=== PATIENT | female | born 1955 ===

== ENCOUNTER 2016-09-08 11:46 | Day surgery (SDC) | payer OTHER ==
[2016-08-25 08:09] VITALS: BMI 25.4
[2016-08-25 09:26] VITALS: RESP 18
[2016-09-08] MEDS ORDERED: Lidocaine 1% Inj (20ml) IJ ONE (12:55)
[2016-09-08] MEDS ORDERED: ceFAZolin 1 GM in Sodium Chloride 0.9% 100 ML IVPB ONE (12:55)
--- NOTE | 2016-09-08 12:55 | CP.SDSHP ---
Same Day Surgery H & P - History Proposed Procedure: Right foot cyst removal Pre-Op Diagnosis: Roght foot dorsal soft tissue mass - Previous Medical/Surgical History Cardiac: Other Pulmonary: Other Endocrine/Metabolic: Other Neuro: Other Misc: Other Pain: 4.Moderate Pain Previous Surgical History: No history of surgery - Allergies Allergies: Allergies No Known Allergies Allergy (Unverified 08/25/16 08:09) - Current Medications Current Medications: Denies - Physical Exam Vital Signs: Vital Signs 09/08/16 09/08/16 12:03 12:06 Temperature 98.5 F Pulse Rate 65 62 Respiratory 18 Rate Blood Pressure 134/62 O2 Sat by Pulse 97 Oximetry Mental Status: Alert & Oriented x3 Neuro: WNL Heart: WNL Lungs: WNL GI: WNL - {Optional Preform as Required} Breast: Other Abdomen: Other Rectal: Other Integument: Other ELECTRIC UTILITY LINEWORKER: Other : Other Ortho: Other ENT: Other - Impression Impression: Pt was seen and examined in SDS. Pt NPO status was confirmed. All Pre-op testing and clearance was in the chart. Pt has exhausted all conservative treatment at this time and is opting for surgical intervention. Pt was explained procedure and post-operative course. All pt's questions were answered to satisfaction. No guarantees were made. Pt understands all risks, benefits and complications of procedure. Pt will follow-up with Dr. Yi Pt. Evaluated Today:Candidate for Anesthesia & Procedure: Yes - Date & Time Date: 09/08/16 Short Stay Discharge - Short Stay Discharge Admitting Diagnosis/Reason for Visit: M67.471 Disposition: HOME/ ROUTINE Referrals: FAMILY PROVIDER,NO [Primary Care Provider] - Follow-up: Follow up with Dr. Yi within 1 week at his office Instructions: RICE Therapy (GEN) Additional Instructions (Diet, Activity): Weight bearing as tolerated in surgical shoes. Progress Note/Discharge Note with Instructions: Patient in good/stable condition for discharge home. Pt to resume medications per medical reconciliation. Resume regular diet. Please keep dressing clean, dry, & intact to surgical site, use plastic bag over bandage for showering, wear post op shoe at all times when ambulating, call clinic if you see signs of infection (redness, swelling, malodor), please make an appointment to see Dr. Yi in office within 1 week for post-op check.
--- NOTE | 2016-09-08 12:55 | CP.PCM.PN ---
Subjective - Date & Time of Evaluation Date of Evaluation: 09/08/16 Time of Evaluation: 12:00 - Subjective Subjective: 61 year old female patient with no significant PMHx was seen at bedside this morning for scheduled surgery of Right foot cyst removal by Dr. Yi. Patient states that she developed a cyst on top of her right foot over couple of months. The cyst at first did not have too much pain, but now it has grown too big and generated pain. Patient wishes for surgical intervention to get rid of the soft tissue mass. Patient also states that the skin covering the cyst becomes irritated when she walks in shoes. Patient was explained of the surgical planning in detail. Patient understands and agrees with the surgical plan. Patient confirms NPO status. Patient denies of any N/V/F/C or SOB today Objective - Vital Signs/Intake and Output Vital Signs (last 24 hours): Temp Pulse Resp BP Pulse Ox 98.5 F 62 18 134/62 97 09/08/16 12:06 09/08/16 12:06 09/08/16 12:06 09/08/16 12:06 09/08/16 12:06 - Constitutional Appears: Well, Non-toxic, No Acute Distress - Extremities Exam Additional comments: Bilateral lower extremities exam DERM: No open wound is noted. No erythema is noted to bilateral feet. No sign of acute infection is noted. 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 NEURO: Protective sensation intact ORTHO including biomechanics exam: S: 61 year old female patient presenting with painful, over grown soft tissue mass to dorsal aspect of right Mid-foot area. Patient states she cannot perform normal daily activity due to pain and irritation of the cyst. Patient wishes for surgical intervention. O: Pain on palpation to right mid foot over the cyst is noted with pain exacerbated upon weightbearing to Right foot. Normal ROM to Right ankle is noted with more than 15' in DF, accompanied by no pain Mild Arch collapse is noted bilaterally upon weightbearing. RCSP 2 degrees inverted to Left, 2 degrees to Right. No structural or functional Limb length discrepancy is noted upon examination. STJ ROM is adaquate with MPJ inverted to the rearfoot. Anterior cavus foot type is not present to B/L feet. Hypermobile 1st ray is absent bilaterally Gait evaluation reveals normal propulsive gait, but with weak plantarflexion before swing phase of gait cycle. Slight pronation is noted throughout midstance and propulsion, with the knees flexed throughout the gait cycles. Increased angle of gait from the normal value of 10' as well as increased base of gait. Enhanced arch collapse on forefoot loading is noted; Left more than right. Slight antalgic gait is noted with shortened stance phase is noted to Right lower extremity. A: Painful soft tissue mass is noted to dorsum of right foot measuring 4.5cm x 3cm x 2cm in height. Mild pes planus without pain is also present to Right foot with mild arch collapse upon weightbearing P: Possible conservative measures were discussed with the patient including orthotics for pes planus (asymptomatic) Patient is present today for Surgical intervention for cyst removal from right foot by Dr. Yi - Neurological Exam Neurological Exam: Alert, Awake, Oriented x3 - Psychiatric Exam Psychiatric exam: Normal Affect, Normal Mood - Skin Skin Exam: Normal Color, Warm Assessment and Plan - Assessment and Plan (Free Text) Assessment: 61 year old female patient presents with painful cyst to dorsum of right mid- foot Plan: Pt was seen and examined in SDS Pt NPO status was confirmed All Pre-op testing and clearance was in the chart Pt has exhausted all conservative treatment at this time and is opting for surgical intervention Pt was explained procedure and post-operative course All pt's questions were answered to satisfaction No guarantees were made Pt understands all risks, benefits and complications of procedure Pt will follow-up with Dr. Yi
[2016-09-08] MEDS ORDERED: Lactated Ringer's 1,000 ML IV SCH (13:00)
[2016-09-08] MEDS ORDERED: Bupivacaine 0.5% Inj(30mL) ONE (13:40)
[2016-09-08] MEDS ORDERED: Lidocaine 1% Inj (20ml) ONE (13:40)
[2016-09-08] MEDS ORDERED: Ketamine 50 mg/ml Inj (10 ml) ONE (14:13)
[2016-09-08] MEDS ORDERED: Midazolam 2 MG/2 ML VIAL ONE (14:13)
[2016-09-08] MEDS ORDERED: Propofol 10 mg/ml Inj (20 ML) ONE ×3 (14:13→14:29)
[2016-09-08] MEDS ORDERED: Lactated Ringer's 1,000 ML IV ONE (14:42)
[2016-09-08] MEDS ORDERED: Dexamethasone 4 mg/1 ml ONE (14:47)
[2016-09-08] MEDS ORDERED: Dexamethasone 4 mg/1 ml IM ONE (15:00)
[2016-09-08] MEDS ORDERED: HYDROmorphone 0.5 mg/0.5 ml ISec IVP PRN (15:23)
[2016-09-08] MEDS ORDERED: Oxycodone/Acetaminophen 5/325 mg Tab PO PRN ×2 (15:28)
--- NOTE | 2016-09-08 15:34 | PCM.SURG1 ---
Surgeon's Initial Post Op Note - Surgeon's Notes Surgeon: Hugh Yi DPM Bee Producer: Kaia Antunez, PGY1 Type of Anesthesia: MAC Anesthesia Administered By: Dr. Solano Pre-Operative Diagnosis: Roght foot dorsal soft tissue mass Operative Findings: See dictation. Anesthesia MAC w/ 8 ccs of 1% lidocaine plain. M: 3-0 vicryl, 4-0 vicryl, 4-0 monucryl, 4-0 nylon,. I: 1 cc of 0.4% dexamethasone phosphate & 6 cc of 0.5% marcaine plain Post-Operative Diagnosis: Rigth foot ganglion cyst Operation Performed: Right foot cyst removal Specimen/Specimens Removed: Soft tissue gangion cyst Estimated Blood Loss: EBL {In ML}: 0 Blood Products Given: N/A Drains Used: No Drains Post-Op Condition: Good Date of Surgery/Procedure: 09/08/16 Time of Surgery/Procedure: 14:30
[2016-09-08 15:43] VITALS: O2SAT 100
[2016-09-08 16:31] VITALS: BP 130/68; PULSE 55; TEMP 97.2
--- NOTE | 2016-09-12 08:59 | OP ---
PROCEDURE DATE: 09/08/2016 PRIMARY SURGEON: Hugh Yi DPM. CANCER PROGRAM DIRECTOR: Kaia nAtunez DPM, PGY-1. ANESTHESIA: MAC. ANESTHESIOLOGIST: Ed Solano MD. PREOPERATIVE DIAGNOSIS: Right foot dorsal cyst. POSTOPERATIVE DIAGNOSIS: Right foot ganglion cyst. NAME OF PROCEDURE: Right foot cystectomy/ganglion cyst excision. INDICATIONS: The patient is a 61-year-old female with the above diagnosis. The patient has exhauste d conservative treatment options at this time, and now requests surgical intervention. The patient s igned the consent after careful explanation of risks, benefits, complications, and alternatives for t he surgical procedure. No guarantees were neither given nor implied. The patient's n.p.o. status wa s confirmed prior to taking the patient to the OR. PREPARATION: The patient was brought to the operating room and placed on the operating room table in a supine position. A well-padded pneumatic tourniquet was placed on the patient's right ankle in th e supramalleolar position. After induction of IV sedation, the patient received a total of 8 mL of l idocaine 1% plain in a local block-type fashion to the right foot. Once local anesthesia and IV cliff tion were achieved and noted to be in full effect, the right foot was then prepped and draped in the usual sterile manner. Esmarch was utilized to exsanguinate the patient's right foot, and pneumatic t ourniquet was then inflated to 250 mmHg, and the procedure began. PROCEDURE: The attending was present during the entire case. Attention was then directed to the dorsal aspect of the right mid-foot where a curvilinear incision w as made measuring approximately 5 cm in length over the palpable soft tissue mass using a #15 blade. The skin incision was deepened down to the superficial fascia layers with attention directed to tj id neurovascular structures. Using blunt dissection, the dissection was continued down to the deep s ubcutaneous tissue layer. All bleeders were cauterized and ligated as necessary as incision was deep ened. Upon dissection, a cystic soft tissue mass was noted. Careful blunt dissection using a mixtur e of Iris scissors and Metzenbaum scissors was used. The soft tissue mass was excised and passed fro m the operative field with growth stalk noted to be a long tendinous growth from extensor digitorum b chan tendons. Wound incision site was then irrigated with copious amounts of sterile saline. Subcu taneous tissue layers were reapproximated using a combination of 3-0 and 4-0 Vicryl. Skin closure wa s reapproximated using 4-0 nylon. The excised soft tissue mass was noted to be 6 cm x 1.5 cm. The incision site was then injected with 1 mL of 0.4% dexamethasone phosphate, and the incision site was injected with 6 mL of 0.5% Marcaine plain. Incision site was dressed with Steri-Strips, Betadine-soaked Adaptic, 4 x 4 gauze, Kerlix, Kl ing, and an James wrap. POSTOPERATIVE CONDITION: The patient tolerated the anesthesia and procedure well and was escorted to the recovery room with vital signs stable and neurovascular status intact to the right foot. The syeda garner will follow up with Dr. Yi on an outpatient basis. Kaia Antunez DPM Hugh Yi DPM cc: [id number] TT: 09/12/2016 08:59:04 jn
== END 2016-09-08 17:00 | disposition home or self-care (01) ==
LOC: H.OPSURG 11:46
PROVIDERS: ATTEND Podiatrist Foot & Ankle Surgery
DX: M67.471 Ganglion, right ankle and foot (principal); M71.371 Other bursal cyst, right ankle and foot; M21.41 Flat foot [pes planus] (acquired), right foot